=== PATIENT | male | born 1980 | race Caucasian/White ===

== ENCOUNTER 2018-12-20 08:29 | Day surgery (SDC) | payer BC ==
[~2018-12-20] VITALS: Ht 180.3 cm; Wt 95.5 kg
[~2018-12-20 08:29] MED LIST: ACETAMINOPHEN 500 MG TABLET PO PRN; BUPIVACAINE-EPI 0.25%-1:200000 MPF 30 ML VIAL. INJ ONE; HYDROmorphone 2 MG/ML VIAL IV PRN; IV RINGERS,LACTATED 1000ML 1,000 ML IV SCH; LIDOCAINE 2% PF 5 ML VIAL. ONE; MORPHINE SULFATE 2 MG/ML VIAL. IV PRN; PROCHLORPERAZINE 10 MG/2 ML VIAL. IV PRN; PROPOFOL 20 ML IV ONE; ROCURONIUM 50 MG/5 ML VIAL. ONE; SUCCINYLCHOLINE 200 MG/10 ML VIAL. ONE; fentaNYL PF VIAL 100 MCG/2 ML VIAL IV PRN; fentaNYL PF VIAL 100 MCG/2 ML VIAL ONE
[2018-12-20] MEDS ORDERED: LEVO125T5 PO (08:38)
[2018-12-20] MEDS ORDERED: DESFLURANE 31 TO 60 MINUTES IH ONE (09:19)
[2018-12-20] MEDS ORDERED: DEXAMETHASONE SOD PHOS 20 MG/5 ML VIAL. ONE (09:19)
[2018-12-20] MEDS ORDERED: NEOSTIGMINE METHYLSULFATE 5 MG/5 ML SYRINGE. ONE (09:35)
[2018-12-20] MEDS ORDERED: ONDANSETRON PF 4 MG/2 ML VIAL. ONE (09:35)
[2018-12-20] MEDS ORDERED: GLYCOPYRROLATE 1 MG/5 ML VIAL. ONE (09:35)
[2018-12-20] MEDS ORDERED: fentaNYL PF VIAL 100 MCG/2 ML VIAL ONE ×2 (10:33→10:54)
[2018-12-20] MEDS: fentaNYL PF VIAL 100 MCG/2 ML VIAL IV PRN ×4 (10:38→11:25)
[2018-12-20] MEDS ORDERED: CELE200C PO (11:08)
[2018-12-20] MEDS ORDERED: GABA300C18 PO (11:10)
[2018-12-20 11:25] VITALS: BP 122/79
--- NOTE | 2018-12-20 12:00 | DISCH ---
DISCHARGE INSTRUCTIONS Condition on Discharge Condition on Discharge: Stable Activity After Discharge Activity Instructions for Disc: Avoid exertion Other activity instructions: no lifting more than 20 pounds for 2 weeks Diet after Discharge Diet after Discharge: Regular Wound Incision Care Other wound/incision instructi: a shower 24 hours Contacting the [facility] after DC Call your doctor for: If your condition worsens Follow-Up Follow up with: Robert in 2 weeks PATSY CAMPOS MD Dec 20, 2018 12:00
--- NOTE | 2018-12-24 08:50 | PDOC4 ---
Operative Note Operative Note [facility] OPERATIVE REPORT Patient Name: Emmanuel Akins Unit Number: [id number] Date of : 1980 Patient Status: Registered Clinic Attending Doctor: Darrel Campos MD Operative Note Operative Note Operative Note Date: 12/20/2018 Preoperative diagnosis: Right inguinal hernia Postoperative diagnosis: Same Procedure: Robotic-assisted laparoscopic right inguinal hernia repair with mesh Surgeon: Robert Specimen: None Dictation: Patient is a 38-year-old male is had pain in the right groin with a bulge consistent with a right internal hernia. Procedure right inguinal hernia repair with mesh was explained to the patient in detail risk benefits were also discussed including bleeding infection injury to intra-abdominal contents possibly necessitating further or open operations alternatives to this procedure also discussed with patient who seemed to understand and gave both verbal and written consent to have the procedure performed patient was taken to operating room placed the supine position general anesthesia was initiated once patient was sleep and intubated placed in low lithotomy position and his abdomen was prepped and draped usual sterile fashion using ChloraPrep. An area just above the umbilicus was injected with quarter percent Marcaine with epinephrine incision was made11 blade scalpel varies needle was placed within the abdomen creating pneumoperitoneum once this was complete 8mm da Oumar port was placed and the camera was placed within the abdomen which was inspected no other abdomen maladies were noted other than a right inguinal hernia. 2 da Oumar ports were placed one in the right mid abdomen one in the left mid abdomen that eventually robot was then brought in and docked all port sites surgeon went to the robotic console using grasper and Endo Lobo scissors the peritoneum was incised on the right side flap was propagated posteriorly reducing the hernia contents and sac. A Bard large right sided mesh was placed over the hernia defect and the peritoneum was closed with a running 20V LOC absorbable suture. The pneumoperitoneum was reduced all ports removed. All skin incisions were closed for septic and a Monocryl Mastisol Steri-Strips and island dressings were applied. Patient was awakened and bated operating room taken to recovery in stable condition all sponge instrument needle counts listed as correct estimated blood loss 5 mL DARREL CAMPOS MD Dec 20, 2018 10:27 DARREL CAMPOS MD Dec 24, 2018 08:50
== END 2018-12-20 12:30 | disposition home or self-care (01) ==
LOC: SURG 08:29
PROVIDERS: ATTEND Surgery
DX: K40.90 Unilateral inguinal hernia, without obstruction or gangrene, not specified as recurrent (principal); Z88.1 Allergy status to other antibiotic agents; Z88.0 Allergy status to penicillin; Z88.8 Allergy status to other drugs, medicaments and biological substances
CPT/HCPCS: 49650; A7015; C1781; J0330; J1100; J1956; J2001; J2405; J2704; J2710; J3010; J3490; S2900